=== PATIENT | male | born 1975 | race Caucasian/White ===

== ENCOUNTER 2016-10-25 01:47 | Inpatient (IN) | payer MEDICAID ==
[2016-10-25] MEDS ORDERED: NS 1,000 ML IV ONE ×2 (01:56→04:00)
[2016-10-25] MEDS ORDERED: ONDANSETRON 4 MG/2 ML VIAL IVP ONE (01:56)
--- NOTE | 2016-10-25 01:57 | EDPHY ---
H & P Stated Complaint: c/o abd pain/n/v starting yesterday am, says hx of etoh abuse HPI/ROS: HPI CHIEF COMPLAINT: Abdominal pain, nausea, vomiting, alcohol intoxication HISTORY OF PRESENT ILLNESS: This patient 41-year-old male, significant past medical history for daily alcohol use, homelessness, presents emergency room from detox by cab for ongoing epigastric abdominal pain nausea vomiting. He has never had alcohol-induced gastritis or pancreatitis. No history of ulcer disease. States pain started earlier today. He denies chest pain or shortness of breath or fever. Patient main complaint is 10/10 burning epigastric pain does not radiate to his back. Associated nausea/vomiting. Past Medical History: Alcoholism Past Surgical History: Denies any surgical history Social History: Daily alcohol use, denies drugs. Family History: Noncontributory ROS REVIEW OF SYSTEMS: A comprehensive 10 point review of systems is otherwise negative aside from elements mentioned in the history of present illness. Exam Constitutional triage nursing summary reviewed, vital signs reviewed, awake/ alert. Eyes normal conjunctivae and sclera, EOMI, PERRLA. HENT normal inspection, atraumatic, moist mucus membranes, no epistaxis, neck supple/ no meningismus, no raccoon eyes. Respiratory clear to auscultation bilaterally, normal breath sounds, no respiratory distress, no wheezing. Cardiovascular rate normal, regular rhythm, no murmur, no edema, distal pulses normal. Gastrointestinal tender palpation epigastric region, no rebound, no guarding, normal bowel sounds, no distension, no pulsatile mass. Genitourinary no CVA tenderness. Musculoskeletal no midline vertebral tenderness, full range of motion, no calf swelling, no tenderness of extremities, no meningismus, good pulses, neurovascularly intact. Skin pink, warm, & dry, no rash, skin atraumatic. Neurologic awake, alert and oriented x 3, AAOx3, moves all 4 extremities equally, motor intact, sensory intact, CN II-XII intact, normal cerebellar, normal vision, normal speech. Psychiatric normal mood/affect. Heme/Lymph/Immune no lymphadenopathy. Differential diagnosis includes but is not limited to and in no particular order : Bowel obstruction, appendicitis, gallbladder disease, diverticulitis, colitis , enteritis, perforated viscus, gastritis, GERD, esophagitis, urinary tract infection, pyelonephritis, kidney stones Medical Decision Making: Plan for this patient IV establishment, IV fluid bolus , IV Zofran nausea IV Dilaudid for pain control. Check lipase and LFTs, CBC. Re-evaluation: 0400AM: Patient's lipase elevated 3000. Patient be admitted for pancreatitis. 2nd L fluid hung. He is not vomiting at this time. He will need to be admitted the hospitalist service for alcohol-induced pancreatitis. Source: Patient - Medical/Surgical History Hx Asthma: No Hx Chronic Respiratory Disease: No Hx Diabetes: No Hx Cardiac Disease: No Hx Renal Disease: No Hx Cirrhosis: No Hx Alcoholism: Yes Hx HIV/AIDS: No Hx Splenectomy or Spleen Trauma: No Other PMH: chronic back pain, etoh abuse - Social History Smoking Status: Current every day smoker Constitutional: Initial Vital Signs Temperature (C) 36.8 C 10/25/16 01:51 Heart Rate 94 10/25/16 01:51 Respiratory Rate 16 10/25/16 01:51 Blood Pressure 140/96 H 10/25/16 01:51 O2 Sat (%) 94 10/25/16 01:51 O2 Delivery Mode Room Air Allergies/Adverse Reactions: No Known Allergies Allergy (Unverified 10/25/16 01:55) Home Medications: Medication Instructions Recorded NK [No Known Home Meds] 10/25/16 Medical Decision Making - Data Points Laboratory Results: Laboratory Results 10/25/16 02:10 10/25/16 02:10 Medications Given: Discontinued Medications Hydromorphone HCl (Dilaudid) 0.5 mg IVP EDNOW ONE Stop: 10/25/16 02:02 Last Admin: 10/25/16 02:20 Dose: 0.5 mg Hydromorphone HCl (Dilaudid) 1 mg IVP EDNOW ONE Stop: 10/25/16 04:29 Last Admin: 10/25/16 05:11 Dose: 1 mg Sodium Chloride (Ns) 1,000 mls @ 0 mls/hr IV EDNOW ONE; Wide Open PRN Reason: Protocol Stop: 10/25/16 01:57 Last Admin: 10/25/16 02:19 Dose: 1,000 mls Sodium Chloride (Ns) 1,000 mls @ 0 mls/hr IV ONCE ONE PRN Reason: Wide Open Stop: 10/25/16 04:01 Last Admin: 10/25/16 04:06 Dose: 1,000 mls Lorazepam (Ativan Injection) 2 mg IVP ONCE ONE Stop: 10/25/16 07:24 Last Admin: 10/25/16 07:55 Dose: 2 mg Ondansetron HCl (Zofran) 4 mg IVP EDNOW ONE Stop: 10/25/16 01:57 Last Admin: 10/25/16 02:21 Dose: 4 mg Departure - Departure Disposition: [facility] Acute Clinical Impression: Pancreatitis Qualifiers: Chronicity: acute Pancreatitis type: alcohol induced Acute pancreatitis complication: unspecified Qualified Code(s): K85.20 - Alcohol induced acute pancreatitis without necrosis or infection Condition: Fair
[2016-10-25] MEDS ORDERED: HYDROmorphONE/DILAUDID 1 MG/ML SYR IVP ONE ×2 (02:01→04:28)
[2016-10-25 02:17] LABS: % IMMATURE GRANULYOCYTES 0.7 % (0.0-1.1); ABSOLUTE IMMATURE GRANULOCYTES 0.09 10^3/uL (0.00-0.10); ADD DIFF? NO; ADD MORPH? NO; ADD SCAN? NO; ATYPICAL LYMPHOCYTE FLAG 10 (0-99); FRAGMENT RBC FLAG 0 (0-99); HEMATOCRIT 38.6 % (40.0-51.0); HEMOGLOBIN 14.3 g/dL (13.7-17.5); LEFT SHIFT FLG 0 (0-99); LIPEMIA HEMOLYSIS FLAG 90 (0-99); MEAN CELL VOLUME 102.7 fL (81.5-99.8); MEAN PLATELET VOLUME 9.2 fL (8.7-11.7); PLATELET CLUMPS FLAG 10 (0-99); PLATELET COUNT 303 10^3/uL (150-400); RED BLOOD CELL COUNT 3.76 10^6/uL (4.40-6.38); RED CELL DISTRIBUTION WIDTH 12.3 % (11.5-15.2)
[2016-10-25 02:32] LABS: ALANINE AMINOTRANSFERASE 97 IU/L (21-72); ALBUMIN 3.8 g/dL (3.5-5.0); ALKALINE PHOSPHATASE 152 IU/L (38-126); ANION GAP 16 mEq/L (8-16); ASPARTATE AMINOTRANSFERASE 259 IU/L (17-59); BILIRUBIN,TOTAL 1.3 mg/dL (0.1-1.4); BILIRUBIN-CONJUGATED 0.7 mg/dL (0.0-0.5); BILIRUBIN-UNCONJUGATED 0.6 mg/dL (0.0-1.1); CALCIUM 9.2 mg/dL (8.5-10.4); CARBON DIOXIDE 23 mEq/l (22-31); CHLORIDE 100 mEq/L (97-110); CREATININE 0.6 mg/dL (0.7-1.3); ETHANOL SERUM 48 mg/dL (0-10); GLOMERULAR FILTRATION RATE > 60; GLUCOSE 86 mg/dL (70-100); POTASSIUM 3.8 mEq/L (3.5-5.2); SODIUM 139 mEq/L (134-144); TOTAL PROTEIN 6.8 g/dL (6.3-8.2)
[2016-10-25] MEDS ORDERED: LORazepam 2 MG/ML INJ IVP ONE (07:23)
[2016-10-25] MEDS ORDERED: NALOXONE HCL 0.4 MG/ML INJ IVP PRN (07:23)
[2016-10-25] MEDS ORDERED: PROMETHAZINE HCL 25 MG/ML INJ IVP PRN (07:25)
[2016-10-25] MEDS ORDERED: ONDANSETRON DISINTEGRATING 4 MG TAB PO PRN (07:25)
[2016-10-25] MEDS ORDERED: ACETAMINOPHEN 325 MG TAB PO PRN (07:25)
[2016-10-25] MEDS: HYDROmorphONE/DILAUDID 6 MG/30 ML PCA IV PRN (07:52)
[2016-10-25] MEDS: NS 1,000 ML IV SCH ×2 (07:55→16:38)
[2016-10-25] MEDS: NICOTINE 21 MG/24 HR PATCH TD SCH (07:57)
[2016-10-25] MEDS: ENOXAPARIN 40 MG/0.4 ML SYR SC SCH (07:58)
--- NOTE | 2016-10-25 08:07 | GHP ---
[f rep st] HISTORY AND PHYSICAL DATE OF ADMISSION: 10/25/2016 HISTORY OF PRESENT ILLNESS: The patient is a pleasant 41-year-old gentleman with history of alcohol ism, who presented to the ER yesterday of his own volition with desire to quit alcohol. It sounds l savannah he has rare days of sobriety. Subsequently yesterday morning he developed a burning epigastric pain. He was unable to eat. He has had nausea and vomiting. He has had no hematemesis or coffee-g round emesis. He may have a bit of black stool. He has no previous history of pancreatitis, althou gh he does have a history of alcohol withdrawal but no alcohol withdrawal seizures. Last alcohol was yesterday morning. REVIEW OF SYSTEMS: Complete review of systems conducted and negative except as noted in the HPI. PAST MEDICAL HISTORY: 1. Head injury last year of uncertain severity. 2. Alcoholism. 3. "Bad back.". ALLERGIES: No known drug allergies. HOME MEDICATIONS: None. SOCIAL HISTORY: Homeless. Originally from [place]. Smokes cigarettes. Drinks alcohol. No IV drugs. FAMILY HISTORY: Notable for cancer. PHYSICAL EXAMINATION: VITAL SIGNS: Temp 36.8, blood pressure 140/96, pulse 94, breathing 16 times a minute, 94% on room air. GENERAL: Disheveled, in no acute distress. Sclerae anicteric. Orophar ynx clear. Mucous membranes dry. NECK: Supple without lymphadenopathy or JVD. LUNGS: Clear to a uscultation bilaterally. HEART: S1, S2, without murmurs. Not tachycardic. ABDOMEN: Soft. No re bound or guarding. Bowel sounds are hypoactive but present. LOWER EXTREMITIES: No edema. Calves nontender. SKIN: Without rash. NEUROLOGIC: Exam shows slight tremor, but otherwise unremarkable. LABORATORY: White count 12.3, hematocrit 38.6, MCV elevated at 102.7, platelets 303,000. Sodium 13 9, potassium 3.8, chloride 100, bicarb 23, BUN 6, creatinine 0.6. LFTs showed slightly elevated con jugated bilirubin 0.7, AST 259, ALT is 97, alk phosphatase 132, lipase elevated at 3337. Alcohol is 48. There is no imaging. I have discussed the case with Dr. Arnoldo Dumont. ASSESSMENT AND PLAN: A 41-year-old gentleman presents with alcoholic pancreatitis and alcoholic hep atitis. 1. Pancreatitis. This is alcohol induced almost certainly. 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 There is no need for imaging at this time. He may have ice chips. 2. Alcoholic hepatitis. Patient has an elevated ALT over AST, a history of alcohol use consist wit h alcoholic pancreatitis. His discriminant function is likely low. We will check an INR today and follow for completeness' sake. At this point in time, I suspect there is no indication for steroids . 3. Macrocytosis secondary to alcohol use. 4. Alcohol withdrawal. The patient is clinically not in alcohol withdrawal. However, at this time , we will place him on CIWA protocol. 5. Smoking. We will give him a nicotine patch. 6. Prophylaxis. Pharmacologic prophylaxis indicated. DISPOSITION: Inpatient status. /[id number]/MODL
[2016-10-25 09:08] LABS: INR 1.24 (0.83-1.16); PROTIME(PATIENT) 15.6 SEC (12.0-15.0)
[2016-10-25] MEDS: FAMOTIDINE 20 MG/NACL 50 ML IV SCH ×2 (10:09→22:03)
--- NOTE | 2016-10-25 13:53 | HOSPPROG ---
Hospitalist Progress Note Assessment/Plan: 41-year-old homeless gentleman known to have alcohol abuse was admitted after admitting to drinking 1/2 to 1 pt of vodka. He was noted to have a elevated lipase abdominal pain was admitted for acute alcoholic pancreatitis. - Acute alcoholic pancreatitis: Lipase is greater than 3000. he has received IV fluids and some pain medication and seems to be improved at this time he has has been no further nausea or vomiting his abdominal exam shows no tenderness in the right upper quadrant. Pain management is with a CLINICAL DOCUMENTATION SPEC pump - Acute alcohol intoxication with probable alcohol withdrawal: Gentleman is being placed on a CIWA protocol. - abnormal LFTs with elevated alkaline phosphatase and lipase.: This may be secondary to his acute alcoholic pancreatitis but could represent a biliary stone due to the elevated alkaline phosphatase. Currently he is afebrile and nontender in the right upper quadrant. Should he develop fever or further tenderness or be unable to resolve the abdominal pain a right upper quadrant ultrasound is suggested. - Low back pain by history. Plan: Right upper quadrant ultrasound to rule out biliary stones. Pain management with a CLINICAL DOCUMENTATION SPEC pump with Dilaudid, and CIWA protocol for probable alcohol withdrawal. Subjective: No particular complaints and in fact no complaints of nausea or vomiting. He is in fact at this time on a CLINICAL DOCUMENTATION SPEC Dilaudid pump though Objective: Vital Signs Temp Pulse Resp BP Pulse Ox 36.8 C 85 16 138/100 H 91 L 10/25/16 10:14 10/25/16 10:14 10/25/16 10:14 10/25/16 10:14 10/25/16 10:14 10/24/16 10/25/16 10/26/16 05:59 05:59 05:59 Intake Total 2000 Output Total 0 Balance 2000 PT 15.6 SEC (12.0-15.0) H 10/25/16 08:36 INR 1.24 (0.83-1.16) H 10/25/16 08:36 - Time Spent With Patient Time Spent with Patient: greater than 35 minutes Time Spent with Patient: Greater than 35 minutes spent on this patients care, greater than 50% of time spent counseling, educating, and coordinating care regarding the above mentioned plan. - Pending Discharge Pending Discharge Within 24 Hours: No Pending Discharge Within 48 Hours: No - Physical Exam Constitutional: no apparent distress, chronically ill appearing Eyes: PERRL Cardiovascular: regular rate and rhythym, no murmur, rub, or gallop Respiratory: no respiratory distress, no rales or rhonchi Gastrointestinal: no palpable masses, tenderness, other ( hypoactive bowel sounds) Genitourinary: no bladder fullness Skin: warm Musculoskeletal: generalized weakness Neurologic: AAOx3, CN II-XII Intact Psychiatric: interacting appropriately ICD10 Worksheet Patient Problems: Problems Problem Status Onset Pancreatitis Acute
[2016-10-25] MEDS: ONDANSETRON 4 MG/2 ML VIAL IVP PRN (14:57)
[2016-10-25 15:31] LABS: COLOR AMBER; LEUKOCYTE ESTERASE,URINE NEGATIVE (NEGATIVE); NITRITE,URINE NEGATIVE (NEGATIVE)
[2016-10-25 15:36] LABS: MUCUS 1+ /lpf (NONE-1+)
[2016-10-26] MEDS: NS 1,000 ML IV SCH ×2 (00:52→20:45)
[2016-10-26] MEDS: LORazepam 2 MG/ML INJ IVP PRN ×2 (08:05→18:43)
[2016-10-26] MEDS: ENOXAPARIN 40 MG/0.4 ML SYR SC SCH (08:05)
[2016-10-26] MEDS: NICOTINE 21 MG/24 HR PATCH TD SCH ×2 (08:05→14:38)
[2016-10-26] MEDS: ONDANSETRON 4 MG/2 ML VIAL IVP PRN (08:05)
[2016-10-26] MEDS: FAMOTIDINE 20 MG/NACL 50 ML IV SCH ×2 (08:13→20:45)
[2016-10-26] MEDS: HYDROmorphONE/DILAUDID 6 MG/30 ML PCA IV PRN (09:36)
--- NOTE | 2016-10-26 13:51 | HOSPPROG ---
Hospitalist Progress Note Assessment/Plan: 41-year-old homeless male new to my care 10/26 admits to drinking 1/2 to 1 pt of vodka. He was noted to have a elevated lipase abdominal pain was admitted for acute alcoholic pancreatitis. 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 Currently he is afebrile and nontender in the right upper quadrant. Should he develop fever or further tenderness or be unable to resolve the abdominal pain a right upper quadrant ultrasound is suggested. - Low back pain by history. Subjective: continues to have nausea and not much appetite. no fever or chills. no shakiness Objective: Vital Signs Temp Pulse Resp BP Pulse Ox 36.7 C 90 14 130/83 H 99 10/26/16 08:00 10/26/16 12:00 10/26/16 12:00 10/26/16 12:00 10/26/16 12:00 10/25/16 10/26/16 10/27/16 05:59 05:59 05:59 Intake Total 1999 2479 Output Total 0 750 400 Balance 1999 1729 -400 PT 15.6 SEC (12.0-15.0) H 10/25/16 08:36 INR 1.24 (0.83-1.16) H 10/25/16 08:36 - Physical Exam Constitutional: no apparent distress, appears nourished, not in pain Cardiovascular: regular rate and rhythym, no murmur, rub, or gallop Respiratory: no respiratory distress, no rales or rhonchi, clear to auscultation Gastrointestinal: normoactive bowel sounds, soft, non-tender abdomen, no palpable masses, No guarding, No rebound Neurologic: AAOx3, CN II-XII Intact, other (no tremor), No facial droop Psychiatric: interacting appropriately, not anxious, not encephalopathic, thought process linear ICD10 Worksheet Patient Problems: Problems Problem Status Onset Pancreatitis Acute
[2016-10-26] MEDS: THIAMINE HCL 500 MG in NS 100 ML IV SCH (17:05)
[2016-10-27] MEDS: LORazepam 2 MG/ML INJ IVP PRN (00:54)
[2016-10-27] MEDS: HYDROmorphONE/DILAUDID 6 MG/30 ML PCA IV PRN (03:17)
[2016-10-27] MEDS: NS 1,000 ML IV SCH (05:07)
[2016-10-27] MEDS: ENOXAPARIN 40 MG/0.4 ML SYR SC SCH (08:31)
[2016-10-27] MEDS: NICOTINE 21 MG/24 HR PATCH TD SCH (08:31)
[2016-10-27] MEDS: FAMOTIDINE 20 MG/NACL 50 ML IV SCH ×2 (08:31→20:17)
[2016-10-27] MEDS: THIAMINE HCL 500 MG in NS 100 ML IV SCH (10:17)
[2016-10-27] MEDS ORDERED: HYDROmorphONE/DILAUDID 2 MG/ML INJ IVP PRN (14:22)
[2016-10-27] MEDS ORDERED: NS 1,000 ML IV ONE (14:22)
--- NOTE | 2016-10-27 14:26 | HOSPPROG ---
Hospitalist Progress Note Assessment/Plan: 41-year-old homeless male new to my care 10/26 admits to drinking 1/2 to 1 pt of vodka. He was noted to have a elevated lipase abdominal pain was admitted for acute alcoholic pancreatitis. 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 Subjective: improving abd pain. continues to have some nausea. wants to try eating Objective: Vital Signs Temp Pulse Resp BP Pulse Ox 36.5 C 100 15 128/99 H 93 10/27/16 12:25 10/27/16 12:25 10/27/16 12:25 10/27/16 12:25 10/27/16 12:25 10/26/16 10/27/16 10/28/16 05:59 05:59 05:59 Intake Total 2479 3915 200 Output Total 750 1500 950 Balance 1729 2415 -750 PT 15.6 SEC (12.0-15.0) H 10/25/16 08:36 INR 1.24 (0.83-1.16) H 10/25/16 08:36 - Physical Exam Constitutional: no apparent distress, appears nourished, not in pain Cardiovascular: tachycardia Respiratory: no respiratory distress, no rales or rhonchi, clear to auscultation Gastrointestinal: normoactive bowel sounds, soft, non-tender abdomen, no palpable masses, No guarding, No rebound ICD10 Worksheet Patient Problems: Problems Problem Status Onset Pancreatitis Acute
[2016-10-27] MEDS: oxyCODONE IR 5 MG TAB PO PRN ×2 (14:56→20:16)
[2016-10-28] MEDS: oxyCODONE IR 5 MG TAB PO PRN ×3 (00:23→20:21)
[2016-10-28] MEDS: LORazepam 2 MG/ML INJ IVP PRN (00:23)
[2016-10-28] MEDS: NICOTINE 21 MG/24 HR PATCH TD SCH (09:40)
[2016-10-28] MEDS: FAMOTIDINE 20 MG TAB PO SCH ×2 (09:41→20:21)
[2016-10-28] MEDS: ENOXAPARIN 40 MG/0.4 ML SYR SC SCH (09:42)
--- NOTE | 2016-10-28 13:39 | HOSPPROG ---
Hospitalist Progress Note Assessment/Plan: 41-year-old homeless male new to my care 10/26 admits to drinking 1/2 to 1 pt of vodka. He was noted to have a elevated lipase abdominal pain was admitted for acute alcoholic pancreatitis. 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 still not able to eat much and is very weak Subjective: very weak. not eating much. no emesis since yesterday. abd pain is improving. no fever or chills. having a hard time walking Objective: Vital Signs Temp Pulse Resp BP Pulse Ox 36.8 C 82 16 130/77 H 96 10/28/16 12:05 10/28/16 12:05 10/28/16 12:05 10/28/16 12:05 10/28/16 12:05 10/27/16 10/28/16 10/29/16 05:59 05:59 05:59 Intake Total 3915 4220 Output Total 1500 1700 400 Balance 2415 2520 -400 PT 15.6 SEC (12.0-15.0) H 10/25/16 08:36 INR 1.24 (0.83-1.16) H 10/25/16 08:36 - Physical Exam Constitutional: no apparent distress, appears nourished, not in pain Ears, Nose, Mouth, Throat: moist mucous membranes, hearing normal, ears appear normal, no oral mucosal ulcers Cardiovascular: regular rate and rhythym, no murmur, rub, or gallop Respiratory: no respiratory distress, no rales or rhonchi, clear to auscultation Gastrointestinal: normoactive bowel sounds, soft, non-tender abdomen, no palpable masses, No guarding, No rebound ICD10 Worksheet Patient Problems: Problems Problem Status Onset Pancreatitis Acute
[2016-10-29] MEDS: oxyCODONE IR 5 MG TAB PO PRN ×4 (05:20→20:50)
[2016-10-29] MEDS: FAMOTIDINE 20 MG TAB PO SCH ×2 (09:33→20:51)
[2016-10-29] MEDS: NICOTINE 21 MG/24 HR PATCH TD SCH (09:33)
[2016-10-29] MEDS: ENOXAPARIN 40 MG/0.4 ML SYR SC SCH (09:34)
[2016-10-29] MEDS: D5W 1/2 NS W/ 20 KCl/L 1,000 ML IV SCH (11:11)
--- NOTE | 2016-10-29 15:44 | HOSPPROG ---
Hospitalist Progress Note Assessment/Plan: 41-year-old homeless male new to my care 10/26 admits to drinking 1/2 to 1 pt of vodka. He was noted to have a elevated lipase abdominal pain was admitted for acute alcoholic pancreatitis. - Acute alcoholic pancreatitis (abd u/s reviewed neg for stones) * perhaps a step backwards * low back to clear liquids * can advance diet tomorrow to knowledge management consultant foods - alcoholism * not withdrawal - alcoholic hepatitis - Low back pain by history Subjective: more abdominal pain and nausea today. Did eat some heavy food yesterday Objective: Vital Signs Temp Pulse Resp BP Pulse Ox 37.2 C 77 18 122/89 H 94 10/29/16 08:00 10/29/16 08:00 10/29/16 08:00 10/29/16 08:00 10/29/16 08:00 10/28/16 10/29/16 10/30/16 05:59 05:59 05:59 Intake Total 4220 500 Output Total 1700 850 Balance 2520 -850 500 PT 15.6 SEC (12.0-15.0) H 10/25/16 08:36 INR 1.24 (0.83-1.16) H 10/25/16 08:36 - Physical Exam Constitutional: no apparent distress, appears nourished, not in pain Eyes: anicteric sclera, EOMI Ears, Nose, Mouth, Throat: moist mucous membranes, hearing normal Cardiovascular: regular rate and rhythym, no murmur, rub, or gallop Gastrointestinal: normoactive bowel sounds, tenderness ( mild epigastric tenderness) Skin: warm Neurologic: AAOx3, other ( not tremulous) Psychiatric: interacting appropriately, not anxious, not encephalopathic, thought process linear ICD10 Worksheet Patient Problems: Problems Problem Status Onset Pancreatitis Acute
[2016-10-30] MEDS: oxyCODONE IR 5 MG TAB PO PRN ×4 (01:02→22:31)
[2016-10-30] MEDS: D5W 1/2 NS W/ 20 KCl/L 1,000 ML IV SCH ×2 (01:03→13:49)
[2016-10-30] MEDS: NICOTINE 21 MG/24 HR PATCH TD SCH (08:50)
[2016-10-30] MEDS: FAMOTIDINE 20 MG TAB PO SCH ×2 (08:50→21:23)
[2016-10-30] MEDS: ENOXAPARIN 40 MG/0.4 ML SYR SC SCH (08:51)
--- NOTE | 2016-10-30 15:41 | HOSPPROG ---
Hospitalist Progress Note Assessment/Plan: 41-year-old homeless male new to my care 10/26 admits to drinking 1/2 to 1 pt of vodka. He was noted to have a elevated lipase abdominal pain was admitted for acute alcoholic pancreatitis. - Acute alcoholic pancreatitis (abd u/s reviewed neg for stones) * Advance diet today * Probably home tomorrow - alcoholism * not withdrawal - alcoholic hepatitis - Low back pain by history Subjective: Is hungry. Tolerating clears Objective: Vital Signs Temp Pulse Resp BP Pulse Ox 36.8 C 69 16 120/90 H 91 L 10/30/16 07:46 10/30/16 07:46 10/30/16 07:46 10/30/16 07:46 10/30/16 07:46 10/29/16 10/30/16 10/31/16 05:59 05:59 05:59 Intake Total 3838 200 Output Total 850 2525 200 Balance -850 1313 0 PT 15.6 SEC (12.0-15.0) H 10/25/16 08:36 INR 1.24 (0.83-1.16) H 10/25/16 08:36 - Physical Exam Constitutional: no apparent distress, appears nourished, not in pain Eyes: anicteric sclera, EOMI Ears, Nose, Mouth, Throat: moist mucous membranes Cardiovascular: regular rate and rhythym Respiratory: no respiratory distress Gastrointestinal: normoactive bowel sounds, soft, non-tender abdomen, no palpable masses Skin: normal color Neurologic: AAOx3 ICD10 Worksheet Patient Problems: Problems Problem Status Onset Pancreatitis Acute
[2016-10-31] MEDS: oxyCODONE IR 5 MG TAB PO PRN ×2 (07:52→19:25)
[2016-10-31] MEDS: D5W 1/2 NS W/ 20 KCl/L 1,000 ML IV SCH (07:52)
[2016-10-31] MEDS: NICOTINE 21 MG/24 HR PATCH TD SCH (08:58)
[2016-10-31] MEDS: FAMOTIDINE 20 MG TAB PO SCH ×2 (08:59→20:42)
[2016-10-31] MEDS: ENOXAPARIN 40 MG/0.4 ML SYR SC SCH (08:59)
[2016-10-31 10:19] LABS: % IMMATURE GRANULYOCYTES 0.7 % (0.0-1.1); ABSOLUTE IMMATURE GRANULOCYTES 0.06 10^3/uL (0.00-0.10); ADD DIFF? NO; ADD MORPH? NO; ADD SCAN? NO; ATYPICAL LYMPHOCYTE FLAG 40 (0-99); FRAGMENT RBC FLAG 20 (0-99); HEMATOCRIT 32.9 % (40.0-51.0); HEMOGLOBIN 11.9 g/dL (13.7-17.5); LEFT SHIFT FLG 0 (0-99); LIPEMIA HEMOLYSIS FLAG 90 (0-99); MEAN CELL HEMOGLOBIN 37.7 pg (27.9-34.1); MEAN CELL HEMOGLOBIN CONCENTR. 36.2 g/dL (32.4-36.7); MEAN CELL VOLUME 104.1 fL (81.5-99.8); MEAN PLATELET VOLUME 9.8 fL (8.7-11.7); PLATELET CLUMPS FLAG 10 (0-99); PLATELET COUNT 309 10^3/uL (150-400); RED BLOOD CELL COUNT 3.16 10^6/uL (4.40-6.38); RED CELL DISTRIBUTION WIDTH 12.2 % (11.5-15.2)
[2016-10-31 10:36] LABS: ALANINE AMINOTRANSFERASE 55 IU/L (21-72); ALBUMIN 2.9 g/dL (3.5-5.0); ALKALINE PHOSPHATASE 98 IU/L (38-126); ANION GAP 10 mEq/L (8-16); ASPARTATE AMINOTRANSFERASE 58 IU/L (17-59); BILIRUBIN,TOTAL 0.6 mg/dL (0.1-1.4); CALCIUM 8.7 mg/dL (8.5-10.4); CARBON DIOXIDE 28 mEq/l (22-31); CHLORIDE 102 mEq/L (97-110); CREATININE 0.5 mg/dL (0.7-1.3); GLOMERULAR FILTRATION RATE > 60; GLUCOSE 98 mg/dL (70-100); POTASSIUM 3.2 mEq/L (3.5-5.2); SODIUM 140 mEq/L (134-144); TOTAL PROTEIN 5.5 g/dL (6.3-8.2)
--- NOTE | 2016-10-31 10:42 | WOCRNPDOC ---
WOCRN Advanced Assessment Note - Skin Integrity Problem, Advanced Assess Left Lower Arm Dressing Type: Open to Air Exudate Amount: None Wound Bed Constitution: Dried Exudate (in distal wound ), Stable Eschar (in proximal wound) Site Measurement - Head-to-Toe Length X Width X Depth (cm): 1x1x0 Skin Integrity Problem Comment: Two wounds. Distal wound appears to have some purulence built up under dried exudate. Wound needs to be cleaned weel and then and moisturized and covered with allevyn. Proximal wound is 100% eschar and stalled in healing proceess. It needs the same intervention. Discussed plan with Raymundo RN and patient. Wound care will round again on 11/02. Left Elbow Abrasion Dressing Type: Tegaderm Film, Telfa Dressing Description: Clean/Dry, Intact Exudate Amount: Scant Exudate Characteristic(s): Bloody Integumentary Issue Intervention: Visualized Under Dressing Arti Wound Tissue: Erythema (minimal) Wound Bed Constitution: Granulation Tissue (50%), Loose Slough (50%) Wound Edges: Attached Site Measurement - Head-to-Toe Length X Width X Depth (cm): 1.5x1x0.2 Skin Integrity Problem Comment: Wound needs to be cleaned and moisturized with wound gel then covered. Discussed plan with Raymundo RN and patient. Wound care will round again on 11/02. Right Lower Arm Dressing Type: Allevyn Life, Open to Air Integumentary Issue Intervention: Visualized Under Dressing Wound Bed Constitution: Granulation Tissue (distal wound ), Stable Eschar ( proximal wound) Site Measurement - Head-to-Toe Length X Width X Depth (cm): 2x2x0.1: distal, 1x1x0: proximal Skin Integrity Problem Comment: Wound that was moisturized under allevyn life is healthy and healing. Both need to be cleaned, moisturized and covered. Proximal wound is 100% eschar and stalled in healing proceess. It needs the same intervention. Discussed plan with Raymundo RN and patient. Wound care will round again on 11/02.
[2016-10-31] MEDS ORDERED: IOPAMIDOL (ISOVUE-300) 100 ML BTL ONE (11:24)
[2016-10-31] MEDS: ONDANSETRON 4 MG/2 ML VIAL IVP PRN (11:55)
[2016-10-31] MEDS: CREON 24 CAP PO SCH ×2 (11:55→19:23)
--- NOTE | 2016-10-31 16:20 | HOSPPROG ---
Hospitalist Progress Note Assessment/Plan: 41-year-old homeless male new to my care 10/26 admits to drinking 1/2 to 1 pt of vodka. He was noted to have a elevated lipase abdominal pain was admitted for acute alcoholic pancreatitis. 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 * Will have Neurology see now so they establish care and follow outpatient Subjective: Still having cramping abdominal pain after eating Objective: Vital Signs Temp Pulse Resp BP Pulse Ox 36.6 C 72 18 116/84 H 94 10/31/16 15:42 10/31/16 15:42 10/31/16 15:42 10/31/16 15:42 10/31/16 15:42 Laboratory Results 10/31/16 10:07 10/31/16 10:07 10/30/16 10/31/16 11/01/16 05:59 05:59 05:59 Intake Total 3838 2001 Output Total 2525 1630 1100 Balance 1313 372 -1100 PT 15.6 SEC (12.0-15.0) H 10/25/16 08:36 INR 1.24 (0.83-1.16) H 10/25/16 08:36 - Physical Exam Constitutional: no apparent distress, appears nourished, not in pain Eyes: anicteric sclera, EOMI Ears, Nose, Mouth, Throat: moist mucous membranes, hearing normal Respiratory: no respiratory distress Gastrointestinal: normoactive bowel sounds, soft, non-tender abdomen, no palpable masses Neurologic: AAOx3 Psychiatric: interacting appropriately, not anxious, not encephalopathic, thought process linear ICD10 Worksheet Patient Problems: Problems Problem Status Onset Pancreatitis Acute
[2016-11-01] MEDS: oxyCODONE IR 5 MG TAB PO PRN ×3 (02:08→13:16)
[2016-11-01] MEDS: D5W 1/2 NS W/ 20 KCl/L 1,000 ML IV SCH (04:05)
[2016-11-01] MEDS: ENOXAPARIN 40 MG/0.4 ML SYR SC SCH (08:48)
[2016-11-01] MEDS: FAMOTIDINE 20 MG TAB PO SCH (08:48)
[2016-11-01] MEDS: CREON 24 CAP PO SCH ×2 (08:48→13:17)
[2016-11-01] MEDS: NICOTINE 21 MG/24 HR PATCH TD SCH (08:48)
--- NOTE | 2016-11-01 12:46 | GDS ---
[f rep st] DISCHARGE SUMMARY DISCHARGE DIAGNOSES: 1. Alcoholic pancreatitis. 2. 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 3. Alcoholism. 4. Acute hepatitis, resolving. 5. Bilateral adrenal gland hyperplasia of uncertain significance. 6. A very small left kidney lesion. HISTORY: A 41-year-old male with a history of alcoholism presenting with abdominal pain. HOSPITAL COURSE: Patient was admitted with a lipase of 3000. He did have an abdominal ultrasound w hich did not show any gallstones. He was placed on bowel rest. He did have a prolonged course duri ng which we would introduce food and he would develop pain and cramping. He was finally able to beth erate some food and felt like he was getting better. We did get a CAT scan during this time, which did show some mild inflammation of pancreas and some incidental findings. Neurology saw the patient, due to his traumatic brain injury. They can follow him up outpatient. Patient did have some incidental findings of uncertain insignificance. He is instructed to follow u p with primary care and make sure that they get records from here to look at the CT scan. TIME SPENT: Greater than 30 minutes spent on discharge. /[id number]/MODL
[2016-11-01 15:20] VITALS: BP 119/89; PULSE 64; RESP 16; TEMP 98.6; O2SAT 98
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
== END 2016-11-01 16:15 | disposition home or self-care (01) | DRG 439 ==
LOC: F1N 05:20 → UNDODISIN 16:35
PROVIDERS: ADMIT Internal Medicine; ATTEND Internal Medicine
DX: K86.0 Alcohol-induced chronic pancreatitis (principal); F10.230 Alcohol dependence with withdrawal, uncomplicated; F10.220 Alcohol dependence with intoxication, uncomplicated; K70.10 Alcoholic hepatitis without ascites; E27.8 Other specified disorders of adrenal gland; N28.9 Disorder of kidney and ureter, unspecified; G89.29 Other chronic pain; Z72.0 Tobacco use; Z87.820 Personal history of traumatic brain injury
CPT/HCPCS: 96374; 97112-GP; 97116-GP; 97162-GP; 97166-GO; 97530-GO; 97535-GO; G0398; G0480; J1170; J1650; J2060; J2405; J3411; Q9967